=== PATIENT | male | born 1970 | race Caucasian/White ===

== ENCOUNTER 2020-12-30 09:47 | Emergency (ER) | payer OTHER ==
[2020-12-30 11:18] LABS: HEMOGLOBIN 16.1 gm/dl (14.0-17.5); RED BLOOD COUNT 5.95 M/UL (4.20-5.50); WHITE BLOOD COUNT 9.1 K/UL (4.5-11.0)
[2020-12-30 12:51] LABS: BUN/CREATININE RATIO 15 (0-10)
[2020-12-30] MEDS ORDERED: DOXYCYCLINE HY100 M2 PO (13:22)
[2020-12-30] MEDS ORDERED: HYDROCHLOROTHIA25 MG PO (13:22)
[2020-12-30] MEDS ORDERED: MEDROL DOSEPAK 24 MG PO (13:22)
[2020-12-30] MEDS ORDERED: FLONASE ALLER15.8 ML (13:22)
[2020-12-30] MEDS ORDERED: ZYRTEC10 MG PO (13:22)
== END 2020-12-30 13:43 | disposition home or self-care (01) ==
LOC: ER1 09:47
PROVIDERS: Physician Assistant
DX: J06.9 Acute upper respiratory infection, unspecified (principal); I10 Essential (primary) hypertension; J45.909 Unspecified asthma, uncomplicated
CPT/HCPCS: 71045; 80053; 82550; 82553; 83874; 84484; 85025; 96374; 99284; J0360

== ENCOUNTER 2021-01-02 16:11 | Emergency (ER) | payer OTHER ==
[~2021-01-02 16:11] MED LIST: DOXYCYCLINE HY100 M2 PO; FLONASE ALLER15.8 ML; HYDROCHLOROTHIA25 MG PO; MEDROL DOSEPAK 24 MG PO; ZYRTEC10 MG PO
[2021-01-02 17:28] LABS: HEMOGLOBIN 17.2 gm/dl (14.0-17.5); RED BLOOD COUNT 5.97 M/UL (4.20-5.50); WHITE BLOOD COUNT 14.7 K/UL (4.5-11.0)
[2021-01-02 17:40] LABS: BUN/CREATININE RATIO 22 (0-10)
[2021-01-02] MEDS ORDERED: LISINOPRIL5 MG PO (18:39)
[2021-01-02] MEDS ORDERED: METOPROLOL SUCC25 MG PO (18:39)
== END 2021-01-02 19:00 | disposition home or self-care (01) ==
LOC: ER1 16:11
PROVIDERS: Physician Assistant
DX: I10 Essential (primary) hypertension (principal); N28.9 Disorder of kidney and ureter, unspecified
CPT/HCPCS: 80053; 82550; 82553; 83874; 84484; 85025; 93005; 96374; 99282

== ENCOUNTER 2021-01-15 13:07 | Emergency (ER) | payer OTHER ==
[~2021-01-15 13:07] MED LIST changes: +LISINOPRIL5 MG PO; +METOPROLOL SUCC25 MG PO
== END 2021-01-15 16:49 | disposition home or self-care (01) ==
LOC: ER1 13:07
DX: U07.1 COVID-19 (principal); I10 Essential (primary) hypertension
CPT/HCPCS: 71045; 87081; 87880; 99283; U0002